=== PATIENT | female | born 1945 | race Caucasian/White ===

== ENCOUNTER 2017-05-31 21:22 | Inpatient (IN) | payer OTHER ==
[~2017-05-31] VITALS: Ht 160 cm; Wt 84.9 kg
[~2017-05-31 21:22] MED LIST: ADVAIR 250/501 DISK IH; ASPIR 8181 M1 PO; COLACE50 MG PO; LISINOPRIL10 MG PO; LISINOPRIL40 MG PO; LO-DOSE ASPIRIN81 M1 PO; PERCOCET 5/31 TABLET PO; PROTONIX40 MG PO; SERTRALINE HCL100 MG PO; SIMVASTATIN40 MG PO; VYTORIN 10/21 TABLET PO; ZOFRAN4 MG PO; [UNRECOGNIZED DRUG - REMARK] IH
[2017-06-01] MEDS ORDERED: MIRALAX17 GM PO (12:12)
[2017-06-01 12:34] VITALS: BP 142/74
[2017-06-01 18:51] VITALS: BP 156/76
[2017-06-01 20:19] VITALS: BP 129/69
[2017-06-01 23:43] VITALS: BP 139/68
[2017-06-02 04:42] VITALS: BP 139/62
[2017-06-02 07:29] LABS: HEMATOCRIT 33.4 % (36.0-46.0); MCV 85.6 FL (83-99)
[2017-06-02 07:40] VITALS: BP 117/56
== END 2017-06-02 13:51 | disposition home or self-care (01) | DRG 483 ==
LOC: ENRESERV 21:22 → 2SOUTH 06-01 10:39 → ENRESERV 06-01 17:12 → 3EAST 06-01 18:05
PROVIDERS: Orthopaedic Surgery
PROC: 0RRJ00Z Replacement of Right Shoulder Joint with Reverse Ball and Socket Synthetic Substitute, Open Approach (ICD-10-PCS; principal; 2017-06-01)
DX: M12.9 Arthropathy, unspecified (principal); M75.101 Unspecified rotator cuff tear or rupture of right shoulder, not specified as traumatic; I10 Essential (primary) hypertension; E78.5 Hyperlipidemia, unspecified; J45.909 Unspecified asthma, uncomplicated; I35.0 Nonrheumatic aortic (valve) stenosis; Z79.82 Long term (current) use of aspirin; Z88.0 Allergy status to penicillin; Z88.1 Allergy status to other antibiotic agents; Z88.2 Allergy status to sulfonamides; Z88.3 Allergy status to other anti-infective agents
CPT/HCPCS: 85014; 85018; 94640; 94640 76; C1713; J0330; J1100; J2250; J2405; J2710; J2795; J3010; J3370; J7030; J7050

== ENCOUNTER 2017-08-13 12:20 | Emergency (ER) | payer OTHER ==
[~2017-08-13] VITALS: Ht 160 cm; Wt 81.3 kg
[~2017-08-13 12:20] MED LIST changes: +MIRALAX17 GM PO
[2017-08-13] MEDS ORDERED: LIDODERM 5% P1 PATCH TD (15:04)
[2017-08-13] MEDS ORDERED: VALIUM5 MG PO (15:04)
[2017-08-13 15:12] VITALS: BP 136/88
== END 2017-08-13 15:14 | disposition home or self-care (01) ==
LOC: EME 12:20
DX: S46.911A Strain of unspecified muscle, fascia and tendon at shoulder and upper arm level, right arm, initial encounter (principal); X58.XXXA Exposure to other specified factors, initial encounter; M62.838 Other muscle spasm; Z96.611 Presence of right artificial shoulder joint; I10 Essential (primary) hypertension; E78.5 Hyperlipidemia, unspecified; Z79.82 Long term (current) use of aspirin
CPT/HCPCS: 73030; 99281; 99284

== ENCOUNTER 2017-12-12 16:18 | Emergency (ER) | payer OTHER ==
[~2017-12-12] VITALS: Ht 160 cm; Wt 79.7 kg
[~2017-12-12 16:18] MED LIST changes: +LIDODERM 5% P1 PATCH TD; +VALIUM5 MG PO
[2017-12-12 16:53] LABS: APPEARANCE CLEAR ((CLEAR)); BILIRUBIN NEGATIVE; BLOOD NEGATIVE; COLOR STRAW ((YELLOW)); GLUCOSE (STRIP) NEGATIVE; KETONES NEGATIVE; LEUKOCYTES TRACE; NITRITE NEGATIVE; PROTEIN (STRIP) NEGATIVE; SPECIFIC GRAVITY 1.005 (1.000-1.030); UROBILINOGEN 0.2 MG/DL (0.2-1.0)
[2017-12-12 16:56] LABS: BACTERIA NONE SEEN /HPF; EPITHELIAL CELLS RARE /HPF; MUCUS NONE SEEN /LPF; RED BLOOD CELLS 0-5 /HPF (0-5); UCUL ADDED? NO; WHITE BLOOD CELLS 0-5 /HPF (0-5)
[2017-12-12 17:02] LABS: HEMATOCRIT 38.8 % (36.0-46.0); HEMOGLOBIN 13.1 G/DL (11.9-15.5); MCH 28.1 PG (29.0-34.0); MCHC 33.8 G/DL (30.0-36.0); MCV 83.3 FL (83-99); PLATELET COUNT 396 K/uL (156-360); RBC DIS.WIDTH-CV 14.6 % (11.8-14.6); RBC DIS.WIDTH-SD 44.1 % (39-53); RED BLOOD COUNT 4.66 M/uL (3.80-5.20); WHITE BLOOD COUNT 13.8 K/uL (4.1-10.2)
[2017-12-12 17:09] LABS: ALBUMIN 4.3 g/dL (3.2-4.8)
[2017-12-12 17:10] LABS: CHLORIDE 103 mEq/L (99-109); POTASSIUM 4.2 mEq/L (3.7-5.4); SODIUM 136 mEq/L (136-147)
[2017-12-12 17:12] LABS: GLUCOSE 125 mg/dL (70-99); TOTAL PROTEIN 7.9 g/dL (6.4-8.3)
[2017-12-12 17:14] LABS: TOTAL BILIRUBIN 0.6 mg/dL (0.0-1.0)
[2017-12-12 17:15] LABS: ALKALINE PHOSPHATASE 83 IU/L (3-129)
[2017-12-12 17:16] LABS: CREATININE 0.8 mg/dL (0.6-1.3); GFR ESTIMATE (CALCULATED) > 59 mL/min/
[2017-12-12 17:17] LABS: AST (GOT) 14 IU/L (2-34); UREA NITROGEN (BUN) 14 mg/dL (9-23)
[2017-12-12 17:18] LABS: ALT (GPT) 19 IU/L (3-49)
[2017-12-12 17:19] LABS: LIPASE 18 U/L (1.0-51.0)
[2017-12-12 19:42] VITALS: BP 158/97
== END 2017-12-12 19:43 | disposition home or self-care (01) ==
LOC: EME 16:18
PROVIDERS: Physician Assistant
DX: K57.32 Diverticulitis of large intestine without perforation or abscess without bleeding (principal); E78.5 Hyperlipidemia, unspecified; K21.9 Gastro-esophageal reflux disease without esophagitis; Z86.73 Personal history of transient ischemic attack (TIA), and cerebral infarction without residual deficits; Z96.619 Presence of unspecified artificial shoulder joint; Z79.82 Long term (current) use of aspirin; Z88.0 Allergy status to penicillin; Z88.2 Allergy status to sulfonamides; Z88.8 Allergy status to other drugs, medicaments and biological substances
CPT/HCPCS: 74177; 80053; 81003; 83690; 85027; 99281; 99284; J1335; J3010; J7030; J7050